=== PATIENT | male | born 1955 | race Caucasian/White ===

== ENCOUNTER 2016-11-11 22:22 | Emergency (ER) | payer OTHER ==
--- NOTE | ~2016-11-11 | ER ---
PATIENT'S NAME: KIRSTIN GERMAIN [facility] AGE: 61 Y [address] ROOM: [place], [place] [address] LOCATION: [facility] ADMIT DATE: 11/11/2016 ER/Outpatient Report DISCHARGE DATE: 11/11/2016 FAMILY PHYSICIAN: Brayden Avalos MD ATTENDING PHYSICIAN: Kasia Tsai Time of Patient's Arrival: 2222 hours. Time of Patient's Evaluation: 2235 hours. CHIEF COMPLAINT: Left thumb laceration. HISTORY OF PRESENT ILLNESS: This 61-year-old male presents to the ER with a left thumb injury that happened approximately an hour prior to arrival. The patient states he was cutting up wood for the morning and he hit the thumb pad with his hammer. He states that he did not hit it directly to the tip of the thumb, just caught the thumb pad causing a flap-like laceration. He states it did bleed quite a bit, but he got the bleeding under control and he states he is up to date on his tetanus shot. ALLERGIES: PLEASE SEE MEDICATION LIST IN NURSE'S NOTES. MEDICATIONS: Please see medication list in nurse's notes. PAST MEDICAL HISTORY: Heart disease. PAST SURGERIES: CABG, stents, and kidney stones. SOCIAL HISTORY: Smoking, quit in 2000. smokes marijuana occasionally. REVIEW OF SYSTEMS: CONSTITUTIONAL: Denies any change in weight or fatigue. MUSCULOSKELETAL: No weakness or myalgias. SKIN: He has a laceration to his left thumb pad. PHYSICAL EXAMINATION: VITAL SIGNS: Height 5 feet 10 inches stated, weight 83.5 kg taken, blood pressure is 143/87, pulse 50, respirations 14, temperature 95.5 degrees tympanically, and saturations 95% on room air. Kehinde Coma Score is 15. PATIENT'S NAME: KIRSTIN GERMAIN [facility] AGE: 61 Y [address] ROOM: [place], [place] [address] LOCATION: [facility] ADMIT DATE: 11/11/2016 ER/Outpatient Report DISCHARGE DATE: 11/11/2016 FAMILY PHYSICIAN: Brayden Avalos MD ATTENDING PHYSICIAN: Kasia Tsai GENERAL: Alert, calm, well-developed male, in no acute distress. EXTREMITIES: No clubbing or cyanosis. He does have full range of motion of all limbs. He can flex and extend his thumb without difficulty. He has good sensation distally. SKIN: He has a 3.5 cm flap-like laceration noted to his left thumb pad. LABORATORY DATA AND X-RAYS: None were done. IMPRESSION: 3.5 cm left thumb pad laceration. ASSESSMENT AND PLAN: I did numb the site with 1% lidocaine. Cleansed the site with Betadine, flushed with normal saline, repaired the laceration using 5-0 Ethilon. The patient did tolerate this well. We did place antibiotic ointment and bandage to the finger. He needs to ice and elevate the finger, take Tylenol or ibuprofen as needed, and follow up with his primary care physician if no better. The patient understands and agrees with care. SHARMAINE PAZ PA-C FOR MD SIMON GUTIERREZ/juliana /[id number] d: 11/12/16 0136 t: 11/13/16 0538, OUTPATIENT REPORT
== END 2016-11-11 23:03 | disposition disaster alternative care site (69) ==
LOC: GACC 22:22
PROC: 0HQGXZZ Repair Left Hand Skin, External Approach (ICD-10-PCS; principal; 2016-11-11)
DX: S61.012A Laceration without foreign body of left thumb without damage to nail, initial encounter (principal); I51.9 Heart disease, unspecified; Z87.891 Personal history of nicotine dependence; Z95.1 Presence of aortocoronary bypass graft; Z95.5 Presence of coronary angioplasty implant and graft; Z87.442 Personal history of urinary calculi; Z79.899 Other long term (current) drug therapy; Z91.041 Radiographic dye allergy status; Z79.82 Long term (current) use of aspirin; W22.8XXA Striking against or struck by other objects, initial encounter; Y93.89 Activity, other specified